=== PATIENT | male | born 1945 | race Two or more races ===

== ENCOUNTER 2016-09-21 17:38 | Emergency (ER) | payer MEDICARE, MEDICAID ==
[~2016-09-21] VITALS: Ht 175.3 cm; Wt 83.9 kg
[2016-09-21 19:33] LABS: Basophils # (auto) 0 uL; Basophils % (auto) 0.2 % (0.0-2.0); Eosinophils # (auto) 0 uL; Eosinophils % (auto) 0.3 % (0.0-7.0); Hematocrit 33.4 % (41.0-53.0); Lymphocytes # (auto) 0.6 uL; Lymphocytes % (auto) 12.7 % (10.0-50.0); Mean Corpuscular Hemoglobin 32.1 pg (28.0-32.0); Mean Corpuscular Hgb Conc. 32.8 g/dL (32.0-36.0); Mean Corpuscular Volume 97.9 fL (80.0-100.0); Mean Platelet Volume 7.3 fL (7.4-10.4); Monocytes # (auto) 0.4 uL; Monocytes % (auto) 6.9 % (0.0-12.0); Neutrophils # (auto) 4.1 uL; Neutrophils % (auto) 79.9 % (37.0-80.0); Platelet Count (auto) 197 10^3/uL (140-450); White Blood Cell 5.1 10^3/uL (4.4-10.8)
[2016-09-21 19:48] LABS: INR 1.01 (0.9-1.15); Partial Thromboplastin Time 26.6 sec (22.64-33.71); Prothrombin Time 10.4 sec (9.37-12.3)
[2016-09-21 19:59] LABS: Albumin 3.4 g/dL (3.4-5.0); Calcium 7.8 mg/dL (8.5-10.1); Magnesium 2.1 mg/dL (1.6-2.6); Potassium 3.6 mmol/L (3.5-5.1)
[2016-09-21 20:04] LABS: Bilirubin, Total 0.8 mg/dL (0.2-1.0); Total Protein 7.4 g/dL (6.4-8.2)
[2016-09-21 20:21] LABS: B-Type Natriuretic Peptide 2229.03 pg/mL (0-100)
[2016-09-22] MEDS ORDERED: METO25TA5 PO (04:55)
[2016-09-22] MEDS ORDERED: ESOM40CA39 PO (04:55)
[2016-09-22] MEDS ORDERED: PRE5T PO (04:55)
[2016-09-22] MEDS ORDERED: ACETTAB85 PO (04:55)
[2016-09-22] MEDS ORDERED: NAP500T PO (04:55)
[2016-09-22] MEDS ORDERED: SEVE800T8 PO (04:55)
[2016-09-22 04:58] VITALS: BP 161/86
== END 2016-09-22 06:09 | disposition left against medical advice (07) ==
LOC: ER 17:55
DX: R07.9 Chest pain, unspecified (principal); Z53.21 Procedure and treatment not carried out due to patient leaving prior to being seen by health care provider; R06.02 Shortness of breath
CPT/HCPCS: 36415; 71010; 80053; 83735; 83880; 84443; 84484; 85025; 85610; 85730; 93005